=== PATIENT | female | born 1985 | race Caucasian/White ===

== ENCOUNTER → 2021-03-15 | Day surgery (SDC) | payer OTHER ==
[~2021-03-15] MED LIST: COLACE 100MG C100 MG PO; FOLIC ACID0.4 MG PO; HYDROCODON-ACE1 EAC4 PO; IBUPROFEN600 MG PO
[2021-03-15 07:22] LABS: HEMOGLOBIN 13.5 gm/dl (12.3-15.3); RED BLOOD COUNT 4.49 M/UL (4.00-5.10); WHITE BLOOD COUNT 9.7 K/UL (4.5-11.0)
== END | disposition home or self-care (01) ==
LOC: OR 06:44
PROVIDERS: Obstetrics & Gynecology
PROC: 10D17ZZ Extraction of Products of Conception, Retained, Via Natural or Artificial Opening (ICD-10-PCS; principal; 2021-03-15 07:30)
DX: O02.1 Missed abortion (principal); G43.909 Migraine, unspecified, not intractable, without status migrainosus; F17.210 Nicotine dependence, cigarettes, uncomplicated; Z20.822 Contact with and (suspected) exposure to COVID-19; Z79.899 Other long term (current) drug therapy
CPT/HCPCS: 36415; 81001; 85025; J1100; J2001; J2250; J2405; J2704; J2765; J2795; J3010; J7120; U0002

== ENCOUNTER 2021-06-26 12:18 | Emergency (ER) | payer BC, OTHER ==
[2021-06-26 12:55] LABS: HEMOGLOBIN 15.3 gm/dl (12.3-15.3); RED BLOOD COUNT 5.03 M/UL (4.00-5.10); WHITE BLOOD COUNT 16.8 K/UL (4.5-11.0)
[2021-06-26 13:18] LABS: BUN/CREATININE RATIO 13 (0-10)
== END 2021-06-26 14:35 | disposition home or self-care (01) ==
LOC: ER1 12:18
PROVIDERS: Nurse Practitioner
DX: N93.9 Abnormal uterine and vaginal bleeding, unspecified (principal); R10.9 Unspecified abdominal pain; F17.290 Nicotine dependence, other tobacco product, uncomplicated
CPT/HCPCS: 76830; 80053; 81001; 84702; 85025; 85610; 86850; 86900; 86901; 99284

== ENCOUNTER 2022-05-29 05:32 | Inpatient (IN) | payer OTHER ==
[~2022-05-29] VITALS: Ht 162.6 cm; Wt 89.8 kg
[2022-05-29] MEDS ORDERED: COMPLETENATE T1 EACH PO (06:37)
[2022-05-29] MEDS ORDERED: CLARITIN10 M2 PO (06:38)
[2022-05-29 06:51] LABS: HEMOGLOBIN 11.8 gm/dl (12.3-15.3); WHITE BLOOD COUNT 12.4 K/UL (4.5-11.0)
[2022-05-29] MEDS ORDERED: COLACE 100MG C100 MG PO (12:39)
[2022-05-29] MEDS ORDERED: IBUPROFEN600 MG PO (12:39)
[2022-05-30 07:21] LABS: HEMOGLOBIN 10.1 gm/dl (12.3-15.3)
== END 2022-05-30 17:57 | disposition home or self-care (01) | DRG 807 ==
LOC: OB 05:32
PROVIDERS: Obstetrics & Gynecology; ADMIT Obstetrics & Gynecology
PROC: 10E0XZZ Delivery of Products of Conception, External Approach (ICD-10-PCS; principal; 2022-05-29)
PROC: 10907ZC Drainage of Amniotic Fluid, Therapeutic from Products of Conception, Via Natural or Artificial Opening (ICD-10-PCS; 2022-05-29)
PROC: 3E033VJ Introduction of Other Hormone into Peripheral Vein, Percutaneous Approach (ICD-10-PCS; 2022-05-29)
PROC: 0UH97HZ Insertion of Contraceptive Device into Uterus, Via Natural or Artificial Opening (ICD-10-PCS; 2022-05-29)
PROC: 4A1H7CZ Monitoring of Products of Conception, Cardiac Rate, Via Natural or Artificial Opening (ICD-10-PCS; 2022-05-29)
PROC: 10H073Z Insertion of Monitoring Electrode into Products of Conception, Via Natural or Artificial Opening (ICD-10-PCS; 2022-05-29)
PROC: 3E0234Z Introduction of Serum, Toxoid and Vaccine into Muscle, Percutaneous Approach (ICD-10-PCS; 2022-05-29)
DX: O36.5930 Maternal care for other known or suspected poor fetal growth, third trimester, not applicable or unspecified (principal); Z37.0 Single live birth; O99.334 Smoking (tobacco) complicating childbirth; Z3A.36 36 weeks gestation of pregnancy; Z28.310 Unvaccinated for COVID-19; Z82.49 Family history of ischemic heart disease and other diseases of the circulatory system; Z83.3 Family history of diabetes mellitus; Z83.438 Family history of other disorder of lipoprotein metabolism and other lipidemia; Z23 Encounter for immunization
CPT/HCPCS: 36415; 81001; 85014; 85018; 85025; J0595; J2210; J2590